=== PATIENT | female | born 1995 | race American Indian/Alaskan Native ===

== ENCOUNTER 2019-03-29 02:35 | Emergency (ER) | payer MEDICAID ==
[2019-03-29 02:40] VITALS: BP 130/82
[2019-03-29] MEDS ORDERED: ONDANSETRON 4 MG/2 ML INJ IV ONE (03:06)
[2019-03-29] MEDS ORDERED: SODIUM CHLORIDE 0.9% 1000 ML 1,000 ML IV ONE (03:06)
--- NOTE | 2019-03-29 03:12 | Emergency Department Report ---
ED Abdominal Pain HPI - General Chief Complaint: Abdominal Pain Stated Complaint: FLANK PAIN,FEVER Time Seen by Provider: 03/29/19 03:04 Source: patient Mode of arrival: Ambulatory Limitations: No Limitations - History of Present Illness Initial Comments: Mrs. WU is a 23-year-old -Wallis[place] female A0 , blood type O postive. who presents with bilateral flank pain radiating the suprapubic 2 days. There is dysuria, and frequency, no hematuria, denies vaginal discharge, no fever or chills, does have history recurrent UTI. However pt states she believes that she is . LMP 02/13/2019. pt advises no concern to UTI. denies vaginal bleeding , no discharge, no abdominal cramping, pt does endorse nausea /vomiting for past 2 days. There is no hx of renal stones. MD Complaint: abdominal pain, flank pain Onset/Timin -: days(s) Location: suprapubic, L flank, R flank Radiation: suprapubic Severity: moderate Severity scale (0 -10): 5 Quality: aching Consistency: constant Improves With: nothing Worsens With: other (voiding) Associated Symptoms: nausea, vomiting, dysuria. denies: diarrhea, fever, chills, melena - Related Data LMP Date: 02/03/19 LMP (females 10-50): 1 month Home Medications Medication Instructions Recorded Confirmed Last Taken Acetaminophen [Non-Aspirin] 325 mg PO PRN 03/31/18 03/31/18 03/27/18 Multivitamin Tablet 1 tab PO QDAY 03/31/18 03/31/18 03/30/18 10:00 metroNIDAZOLE [Flagyl TAB] 1 tab PO QDAY 03/31/18 03/31/18 03/30/18 20:00 Previous Rx's Medication Instructions Recorded Last Taken Type Ferrous Sulfate [Feosol 325 MG tab] 325 mg PO BID #60 tablet 04/03/18 Unknown Rx Ibuprofen [Motrin 600 MG tab] 600 mg PO Q6H #30 tablet 04/03/18 Unknown Rx Labetalol [Labetalol 100mg TAB] 100 mg PO BID #60 tablet 04/03/18 Unknown Rx Vit-Fe Fumar-FA [ 1 each PO QDAY #30 tablet 04/03/18 Unknown Rx Vitamin] Acetaminophen [Acetaminophen TAB] 650 mg PO Q6HR PRN #30 tablet 03/29/19 Unknown Rx cephALEXin [Keflex] 500 mg PO Q12HR 10 Days #20 cap 03/29/19 Unknown Rx metroNIDAZOLE [Flagyl] 500 mg PO Q12HR 10 Days #20 tab 03/29/19 Unknown Rx Allergies Allergy/AdvReac Type Severity Reaction Status Date / Time No Known Allergies Allergy Verified 03/31/18 05:41 ED Review of Systems ROS: Stated complaint: FLANK PAIN,FEVER Other details as noted in HPI Constitutional: denies: chills, fever Eyes: as per HPI ENT: denies: ear pain, throat pain Respiratory: denies: cough, shortness of breath, wheezing Cardiovascular: denies: chest pain, palpitations Endocrine: no symptoms reported Gastrointestinal: denies: abdominal pain, nausea, diarrhea Genitourinary: dysuria, frequency. denies: hematuria, discharge, dyspareunia Musculoskeletal: denies: back pain, joint swelling, arthralgia Skin: denies: rash, lesions Neurological: denies: headache, weakness, paresthesias Psychiatric: denies: anxiety, depression Hematological/Lymphatic: denies: easy bleeding, easy bruising ED Past Medical Hx - Past Medical History Previous Medical History?: No Hx Hypertension: No Hx Congestive Heart Failure: No Hx Diabetes: No Hx Deep Vein Thrombosis: No Hx Renal Disease: No Hx Sickle Cell Disease: No Hx Seizures: No Hx Asthma: No Hx COPD: No Hx HIV: No - Surgical History Past Surgical History?: No - Social History Smoking Status: Current Every Day Smoker Substance Use Type: None - Medications Home Medications: Home Medications Medication Instructions Recorded Confirmed Last Taken Type Acetaminophen [Non-Aspirin] 325 mg PO PRN 03/31/18 03/31/18 03/27/18 History Multivitamin Tablet 1 tab PO QDAY 03/31/18 03/31/18 03/30/18 10:00 History metroNIDAZOLE [Flagyl TAB] 1 tab PO QDAY 03/31/18 03/31/18 03/30/18 20:00 History Ferrous Sulfate [Feosol 325 MG tab] 325 mg PO BID #60 tablet 04/03/18 Unknown Rx Ibuprofen [Motrin 600 MG tab] 600 mg PO Q6H #30 tablet 04/03/18 Unknown Rx Labetalol [Labetalol 100mg TAB] 100 mg PO BID #60 tablet 04/03/18 Unknown Rx Vit-Fe Fumar-FA [ 1 each PO QDAY #30 tablet 04/03/18 Unknown Rx Vitamin] Acetaminophen [Acetaminophen TAB] 650 mg PO Q6HR PRN #30 tablet 03/29/19 Unknown Rx cephALEXin [Keflex] 500 mg PO Q12HR 10 Days #20 cap 03/29/19 Unknown Rx metroNIDAZOLE [Flagyl] 500 mg PO Q12HR 10 Days #20 tab 03/29/19 Unknown Rx ED Physical Exam - General Limitations: No Limitations General appearance: alert, in no apparent distress - Head Head exam: Present: atraumatic, normocephalic - Eye Eye exam: Present: normal appearance, PERRL, EOMI Pupils: Present: normal accommodation - ENT ENT exam: Present: mucous membranes moist - Neck Neck exam: Present: normal inspection, full ROM. Absent: tenderness, lymphadenopathy - Respiratory Respiratory exam: Present: normal lung sounds bilaterally. Absent: respiratory distress - Cardiovascular Cardiovascular Exam: Present: regular rate, normal rhythm. Absent: systolic murmur, diastolic murmur, rubs, gallop - GI/Abdominal GI/Abdominal exam: Present: soft, normal bowel sounds. Absent: distended, tenderness, guarding, rebound, rigid, bruit, hernia - Rectal Rectal exam: Present: deferred - External exam: Present: normal external exam (all). Absent: erythema, swelling, lesions, lacerations, ecchymosis, bleeding Speculum exam: Present: erythema, vaginal discharge (white thick malodorous ). Absent: cervical discharge, vaginal bleeding, foreign body, tissue, laceration Bi-manual exam: Absent: cervical motion tendernes - Extremities Exam Extremities exam: Present: normal inspection, full ROM, normal capillary refill - Back Exam Back exam: Present: full ROM. Absent: tenderness, CVA tenderness (R), CVA tenderness (L), vertebral tenderness - Neurological Exam Neurological exam: Present: alert, oriented X3, CN II-XII intact, normal gait - Psychiatric Psychiatric exam: Present: normal affect, normal mood - Skin Skin exam: Present: warm ED Course Vital Signs 03/29/19 02:38 Temperature 98.7 F Pulse Rate 117 H Respiratory 18 Rate Blood Pressure 130/82 O2 Sat by Pulse 96 Oximetry ED Medical Decision Making - Lab Data Result diagrams: 03/29/19 02:53 03/29/19 02:53 Labs 03/29/19 03/29/19 03/29/19 02:53 02:53 02:53 WBC 8.7 RBC 4.34 Hgb 12.7 Hct 38.5 MCV 89 MCH 29 MCHC 33 RDW 13.8 Plt Count 282 Lymph % (Auto) 13.3 L [place] % (Auto) 13.3 H Eos % (Auto) 0.1 Baso % (Auto) 0.4 Lymph # 1.2 [place] # 1.2 H Eos # 0.0 Baso # 0.0 Seg Neutrophils % 72.9 H Seg Neutrophils # 6.4 Sodium 136 L Potassium 3.7 Chloride 101.2 Carbon Dioxide 22 Anion Gap 17 BUN 7 Creatinine 0.7 Estimated GFR > 60 BUN/Creatinine Ratio 10 Glucose 100 Calcium 9.5 Total Bilirubin 0.40 AST 15 ALT 8 Alkaline Phosphatase 57 Total Protein 8.6 H Albumin 4.5 Albumin/Globulin Ratio 1.1 Lipase 7 L HCG, Qual Positive HCG, Quant Urine Color Urine Turbidity Urine pH Ur Specific [place] Urine Protein Urine Glucose (UA) Urine Ketones Urine Blood Urine Nitrite Urine Bilirubin Urine Urobilinogen Ur Leukocyte Esterase Urine WBC (Auto) Urine RBC (Auto) U Epithel Cells (Auto) Urine Bacteria (Auto) Urine Mucus 03/29/19 03/29/19 04:38 Unknown WBC RBC Hgb Hct MCV MCH MCHC RDW Plt Count Lymph % (Auto) [place] % (Auto) Eos % (Auto) Baso % (Auto) Lymph # [place] # Eos # Baso # Seg Neutrophils % Seg Neutrophils # Sodium Potassium Chloride Carbon Dioxide Anion Gap BUN Creatinine Estimated GFR BUN/Creatinine Ratio Glucose Calcium Total Bilirubin AST ALT Alkaline Phosphatase Total Protein Albumin Albumin/Globulin Ratio Lipase HCG, Qual HCG, Quant 9141 H Urine Color Yellow Urine Turbidity Slightly-cloudy Urine pH 5.0 Ur Specific [place] 1.021 Urine Protein 30 mg/dl Urine Glucose (UA) Neg Urine Ketones 80 Urine Blood Neg Urine Nitrite Pos Urine Bilirubin Neg Urine Urobilinogen < 2.0 Ur Leukocyte Esterase Mod Urine WBC (Auto) 29.0 H Urine RBC (Auto) 4.0 U Epithel Cells (Auto) 6.0 Urine Bacteria (Auto) 2+ Urine Mucus 3+ - Radiology Data Radiology results: report reviewed, image reviewed [facility] [address] [place] [address] Ultrasound Report Signed Patient: SANDRITA WALLACE MR#: [id number] : 1995 Acct:[id number] Age/Sex: 23 / F ADM Date: 03/29/19 Loc: ED Attending Dr: Ordering Physician: PARAS GRIGGS NP Date of Service: 03/29/19 Procedure(s): US OB transvaginal Accession Number(s): [id number] cc: PARAS GRIGGS NP Limited obstetrical ultrasound INDICATION: , pelvic pain TECHNIQUE: Transabdominal and endovaginal COMPARISON: None FINDINGS: Intrauterine gestational sac is seen with a yolk sac noted. No pole is identified. The technologist did not identified cardiac activity. Sac size corresponds to an estimated gestational age of 5 weeks 5 days. Flow is noted in both ovaries. A 15 mm complex area is seen in the left ovary which may be a corpus luteum cyst with hemorrhage. No free fluid is seen. IMPRESSION: 1. Early intrauterine but I cannot confirm viability. Recommend follow-up. 2. Small complex lesion in the left ovary. Recommend follow-up. Signer Name: Adrien Parnell MD Signed: 03/29/2019 5:51 AM Workstation Name: [id number] Transcribed By: GJ Dictated By: Adrien Parnell MD Electronically Authenticated By: Adrien Parnell MD Signed Date/Time: 03/29/19550 DD/ 7 TD/TT: - Medical Decision Making US OB: Sing IUP 5 weeks and 5days, UA: pos leuk , wbc, , pt will follow up with OBGYN in 2-3 days , for hcg check and possible repeat UA. pt verbailzed agreement and understanding of discharge plan, pt dc'd to home in stable condition at this plan. Critical care attestation.: If time is entered above; I have spent that time in minutes in the direct care of this critically ill patient, excluding procedure time. ED Disposition Clinical Impression: Abdominal pain during intrauterine , Nausea and vomiting during Qualifiers: Weeks of gestation: 9 weeks Qualified Code(s): Z3A.09 - 9 weeks gestation of Ovarian cyst Qualifiers: Laterality: left Qualified Code(s): N83.202 - Unspecified ovarian cyst, left side Disposition: DC-01 TO HOME OR SELFCARE Is pt being admited?: No Does the pt Need Aspirin: No Condition: Stable Instructions: Ovarian Cyst (ED), (ED), Abdominal Pain in (ED) Prescriptions: Acetaminophen [Acetaminophen TAB] 650 mg PO Q6HR PRN #30 tablet PRN Reason: Pain metroNIDAZOLE [Flagyl] 500 mg PO Q12HR 10 Days #20 tab cephALEXin [Keflex] 500 mg PO Q12HR 10 Days #20 cap Forms: Work/School Release Form(ED) Time of Disposition: 06:25
[2019-03-29 03:19] LABS: Basophils % (Auto) 0.4 % (0.0-1.8); Eosinophils % (Auto) 0.1 % (0.0-4.3); Hematocrit 38.5 % (30.3-42.9); Hemoglobin 12.7 gm/dl (10.1-14.3); Lymphocytes # (Auto) 1.2 K/mm3 (1.2-5.4); Lymphocytes % (Auto) 13.3 % (13.4-35.0); Mean Corpuscular HGB Conc 33 % (30-34); Mean Corpuscular Volume 89 fl (79-97); Monocytes # (Auto) 1.2 K/mm3 (0.0-0.8); Monocytes % (Auto) 13.3 % (0.0-7.3); Platelet Count 282 K/mm3 (140-440); Red Blood Count 4.34 M/mm3 (3.65-5.03); Red Cell Distribution Width 13.8 % (13.2-15.2)
[2019-03-29 03:34] LABS: Bacteria,Urine 2+ /HPF (Negative); Bilirubin,Urine NEG (Negative); Blood,Urine NEG (Negative); Color,Urine Yellow (Yellow); Mucus,Urine 3+ /HPF; Urobilinogen,Urine < 2.0 mg/dL (<2.0)
[2019-03-29 03:48] LABS: Alanine Aminotransferase 8 units/L (7-56); Albumin 4.5 g/dL (3.9-5); BUN/Creatinine Ratio 10; Blood Urea Nitrogen 7 mg/dL (7-17); Calcium 9.5 mg/dL (8.4-10.2); Hemolysis Index 4
--- NOTE | 2019-03-29 05:55 | Ultrasound Report ---
Limited obstetrical ultrasound INDICATION: , pelvic pain TECHNIQUE: Transabdominal and endovaginal COMPARISON: None FINDINGS: Intrauterine gestational sac is seen with a yolk sac noted. No pole is identified. e technologist did not identified cardiac activity. Sac size corresponds to an estimated gestat ional age of 5 weeks 5 days. Flow is noted in both ovaries. A 15 mm complex area is seen in the left ovary which may be a corpus l uteum cyst with hemorrhage. No free fluid is seen. IMPRESSION: 1. Early intrauterine but I cannot confirm viability. Recommend follow-up. 2. Small complex lesion in the left ovary. Recommend follow-up. Signer Name: Adrien Parnell MD Signed: 03/29/2019 5:51 AM Workstation Name: [id number]
== END 2019-03-29 06:32 | disposition home or self-care (01) ==
LOC: ED 02:35
DX: O34.81 Maternal care for other abnormalities of pelvic organs, first trimester (principal); N83.202 Unspecified ovarian cyst, left side; O21.8 Other vomiting complicating pregnancy; O99.331 Smoking (tobacco) complicating pregnancy, first trimester; Z79.899 Other long term (current) drug therapy; Z3A.09 9 weeks gestation of pregnancy
CPT/HCPCS: 36415; 76801; 76817; 80053; 81001; 83690; 84702; 84703; 85025; 87086; 87210; 87591; 96361; 96374; 99284; J2405; J7030; 87076; 87186

== ENCOUNTER 2020-09-17 22:46 | Observation (INO) | payer MEDICAID ==
[2020-09-18] MEDS ORDERED: AMPICILLIN/NS 2 GM/100 ML 2 GM/100 ML BAG IV ONE (00:35)
[2020-09-18] MEDS ORDERED: METHYLERGONOVINE MALEATE 0.2 MG/ML VIAL IM PRN (00:35)
[2020-09-18] MEDS ORDERED: BUTORPHANOL 2 MG/1 ML INJ IV PRN (00:35)
[2020-09-18] MEDS ORDERED: OXYTOCIN 10 UNIT/1 ML INJ IM PRN (00:35)
[2020-09-18] MEDS ORDERED: MINERAL OIL 30 ML ORAL LIQD PO PRN (00:35)
[2020-09-18] MEDS ORDERED: LIDOCAINE (2%) 20 MG/1 ML VIAL 20 ML MDV INFILTRATI ONE (00:35)
[2020-09-18] MEDS ORDERED: NalbUPHINE 10 MG/1 ML INJ IV PRN (00:35)
[2020-09-18] MEDS ORDERED: TERBUTALINE 1 MG/1 ML INJ SUB-Q PRN (00:35)
[2020-09-18] MEDS ORDERED: ePHEDrine SULFATE 50 MG/1 ML INJ IV PRN (00:35)
--- NOTE | 2020-09-18 00:48 | History and Physical Report ---
History of Present Illness Date of examination: 09/18/20 Date of admission: 25 yo WITH NO CARE. DENIES MEDICAL PROBLEMS. ADMITTED IN EARLY LABOR. Chief complaint: C/O LABOR. History of present illness: 25 YO MULTIP WITH NO CARE. SUSPECT TERM . NO MEDICAL PROBLEMS. EXPENTANT VAGINAL DELIVERY. Past History Past Surgical History: no surgical history Family/Genetic History: hypertension Social history: single - Obstetrical History : 3 Para: 1 Hx # Term Pregnancies: 1 Number of Pregnancies: 0 Spontaneous Abortions: 0 Induced : 0 Number of Living Children: 1 Medications and Allergies Allergies Allergy/AdvReac Type Severity Reaction Status Date / Time No Known Allergies Allergy Verified 03/31/18 05:41 Home Medications Medication Instructions Recorded Confirmed Last Taken Type Acetaminophen [Non-Aspirin] 325 mg PO PRN 03/31/18 03/31/18 03/27/18 History Multivitamin Tablet 1 tab PO QDAY 03/31/18 03/31/18 03/30/18 10:00 History metroNIDAZOLE [Flagyl TAB] 1 tab PO QDAY 03/31/18 03/31/18 03/30/18 20:00 History Ferrous Sulfate [Feosol 325 MG tab] 325 mg PO BID #60 tablet 04/03/18 Unknown Rx Ibuprofen [Motrin 600 MG tab] 600 mg PO Q6H #30 tablet 04/03/18 Unknown Rx Vit-Fe Fumar-FA [ 1 each PO QDAY #30 tablet 04/03/18 Unknown Rx Vitamin] labetaloL [Labetalol 100mg TAB] 100 mg PO BID #60 tablet 04/03/18 Unknown Rx Acetaminophen [Acetaminophen TAB] 650 mg PO Q6HR PRN #30 tablet 03/29/19 Unknown Rx cephALEXin [Keflex] 500 mg PO Q12HR 10 Days #20 cap 03/29/19 Unknown Rx metroNIDAZOLE [Flagyl] 500 mg PO Q12HR 10 Days #20 tab 03/29/19 Unknown Rx Active Meds: Active Medications Butorphanol Tartrate (Butorphanol 2 Mg/1 Ml Inj) 1 mg IV Q2H PRN PRN Reason: Pain, Moderate(4-6) LABOR PAIN Ephedrine Sulfate (Ephedrine Sulfate 50 Mg/1 Ml Inj) 10 mg IV Q2M PRN PRN Reason: Hypotension Oxytocin/Sodium Chloride (Pitocin/Ns 30 Unit/500ml) 30 units in 500 mls @ 2 mls/hr IV TITR JOSIE; Protocol Lactated Ringer's (Lactated Ringers) 1,000 mls @ 125 mls/hr IV DIRECT JOSIE Oxytocin/Sodium Chloride (Pitocin/Ns 30 Unit/500ml) 30 units in 500 mls @ 40 mls/hr IV TITR JOSIE; Protocol Ampicillin Sodium (Ampicillin/Ns 2 Gm/100 Ml) 2 gm in 100 mls @ 100 mls/hr IV ONCE ONE; Protocol Stop: 09/18/20 01:34 Lidocaine (Lidocaine (2%) 20 Mg/1 Ml Vial 20 Ml Mdv) 20 ml INFILTRATI ONCE ONE Stop: 09/18/20 00:36 Methylergonovine Maleate (Methylergonovine Maleate 0.2 Mg/Ml Vial) 0.2 mg IM ONCE PRN PRN Reason: Uterine Bleeding Mineral Oil (Mineral Oil 30 Ml Oral Liqd) 30 ml PO QHS PRN PRN Reason: Constipation Nalbuphine HCl (Nalbuphine 10 Mg/1 Ml Inj) 10 mg IV Q2H PRN PRN Reason: Pain, Moderate (4-6) Ondansetron HCl (Ondansetron 4 Mg/2 Ml Inj) 4 mg IV Q8H PRN PRN Reason: Nausea And Vomiting Oxytocin (Oxytocin 10 Unit/1 Ml Inj) 10 unit IM ONCE PRN PRN Reason: Uterine Bleeding Terbutaline Sulfate (Terbutaline 1 Mg/1 Ml Inj) 0.25 mg SUB-Q ONCE PRN PRN Reason: Hyperstimulation/Hypertonicity Review of Systems All systems: negative - Vital Signs Vital signs: Vital Signs Temp Pulse Resp 98.3 F 78 18 09/17/20 23:56 09/17/20 23:56 09/17/20 23:56 Temp Pulse Resp BP Pulse Ox 98.3 F 79 18 125/87 09/17/20 23:56 09/18/20 00:26 09/17/20 23:56 09/18/20 00:26 - Physical Exam Breasts: Positive: normal Cardiovascular: Regular rate, Normal S1, Normal S2 Abdomen: Positive: normal appearance, soft, normal bowel sounds. Negative: distention, tenderness Genitourinary (Female): Positive: normal external genitalia Vulva: both: normal Vagina: Positive: normal moisture. Negative: discharge Cervix: Negative: lesion, discharge Uterus: Positive: normal size, normal contour Adnexa: both: normal Anus/Rectum: Positive: normal perianal skin, heme negative. Negative: rectal mass, hemorrhoids Extremities: Deep Tendon Reflex Grade: Normal +2 - Obstetrical FHR: category 1 Uterine Contraction Monitor Mode: External Cervical Dilatation: 2 Results All other labs normal. Assessment and Plan WILL GET U/S FOR GEST AGE. EXPECTANT VAG DELIVERY.ORDER ROUTINE LABS.
[2020-09-18 00:49] LABS: Hematocrit 34.4 % (30.3-42.9); Hemoglobin 11.3 gm/dl (10.1-14.3); Mean Corpuscular HGB Conc 33 % (30-34); Mean Corpuscular Volume 88 fl (79-97); Platelet Count 204 K/mm3 (140-440); Red Blood Count 3.93 M/mm3 (3.65-5.03)
[2020-09-18] MEDS ORDERED: OXYTOCIN DRIP 30 UNITS/500 ML BAG IV SCH ×2 (01:00)
[2020-09-18 01:15] LABS: Basophils % (Auto) 0.2 % (0.0-1.8); Eosinophils % (Auto) 0.3 % (0.0-4.3); Lymphocytes # (Auto) 1.6 K/mm3 (1.2-5.4); Lymphocytes % (Auto) 15.3 % (13.4-35.0); Monocytes % (Auto) 10.1 % (0.0-7.3)
--- NOTE | 2020-09-18 01:17 | Ultrasound Report ---
Limited OB Ultrasound HISTORY: EGA, PRESENTATION. TECHNIQUE: Grayscale and color imaging performed. COMPARISON: No recent comparison exam FINDINGS: There is a single viable intrauterine gestation with cephalic presentation. Heart rate is 1 31 bpm. Overall EGA by ultrasound is 36 weeks 6 days with estimated weight of 2905 g. Estimated delivery date is 10/10/2020. IMPRESSION: Single viable intrauterine gestation as above. Signer Name: Spencer Lind MD Signed: 09/18/2020 1:13 AM Workstation Name: [id number]
[2020-09-18 01:32] LABS: Hematocrit 34.4 % (30.3-42.9); Hemoglobin 11.3 gm/dl (10.1-14.3); Red Blood Count 3.93 M/mm3 (3.65-5.03)
[2020-09-18 01:33] LABS: Mean Corpuscular HGB Conc 33 % (30-34); Mean Corpuscular Volume 88 fl (79-97); Mean Platelet Volume 9.7 fl (6-12); Platelet Count 204 K/mm3 (140-440)
[2020-09-18 01:35] LABS: Hepatitis C Virus Antibody Non-Reactive (NonReactive)
[2020-09-18] MEDS ORDERED: BUTORPHANOL 2 MG/1 ML INJ IV ONE (03:15)
[2020-09-18] MEDS: ONDANSETRON 4 MG/2 ML INJ IV PRN ×2 (03:39→10:40)
--- NOTE | 2020-09-18 09:47 | Progress Note ---
Assessment and Plan A: IUP@ 37 wks No PNC GBS unknown P: Obtain ua c&s Expectant mtg Subjective - Subjective Date of service: 09/18/20 Principal diagnosis: IUP@37 WKS Patient reports: movement normal Objective - Vital Signs Vital Signs: Vital Signs - 12hr 09/17/20 09/18/20 09/18/20 23:56 00:07 00:12 Temperature 98.3 F Pulse Rate 78 81 75 Respiratory 18 Rate Blood Pressure 138/99 130/88 Blood Pressure [Right] O2 Sat by Pulse Oximetry 09/18/20 09/18/20 09/18/20 00:16 00:22 00:26 Temperature Pulse Rate 75 80 79 Respiratory Rate Blood Pressure 127/88 124/88 125/87 Blood Pressure [Right] O2 Sat by Pulse Oximetry 09/18/20 09/18/20 09/18/20 00:46 01:03 01:17 Temperature Pulse Rate 71 80 69 Respiratory Rate Blood Pressure 128/78 144/94 128/85 Blood Pressure [Right] O2 Sat by Pulse Oximetry 09/18/20 09/18/20 09/18/20 01:57 01:58 02:03 Temperature 97.6 F Pulse Rate 77 75 71 Respiratory 18 Rate Blood Pressure 136/92 Blood Pressure 136/92 [Right] O2 Sat by Pulse 98 97 100 Oximetry 09/18/20 09/18/20 09/18/20 02:08 02:13 02:18 Temperature Pulse Rate 92 H 74 84 Respiratory Rate Blood Pressure Blood Pressure [Right] O2 Sat by Pulse 99 98 99 Oximetry 09/18/20 09/18/20 09/18/20 02:23 02:28 02:33 Temperature Pulse Rate 84 71 101 H Respiratory Rate Blood Pressure Blood Pressure [Right] O2 Sat by Pulse 100 99 100 Oximetry 09/18/20 09/18/20 09/18/20 03:37 03:42 03:47 Temperature Pulse Rate 77 73 85 Respiratory Rate Blood Pressure Blood Pressure [Right] O2 Sat by Pulse 96 96 98 Oximetry 09/18/20 09/18/20 09/18/20 03:52 03:57 04:02 Temperature Pulse Rate 69 70 68 Respiratory Rate Blood Pressure Blood Pressure [Right] O2 Sat by Pulse 96 100 98 Oximetry 09/18/20 09/18/20 09/18/20 04:04 04:07 04:09 Temperature Pulse Rate 66 68 83 Respiratory Rate Blood Pressure Blood Pressure [Right] O2 Sat by Pulse 94 96 92 Oximetry 09/18/20 09/18/20 09/18/20 04:12 04:15 04:17 Temperature Pulse Rate 73 68 80 Respiratory Rate Blood Pressure Blood Pressure [Right] O2 Sat by Pulse 95 94 95 Oximetry 09/18/20 09/18/20 09/18/20 04:22 04:23 04:25 Temperature 97.4 F L Pulse Rate 74 67 Respiratory 16 Rate Blood Pressure 117/61 Blood Pressure [Right] O2 Sat by Pulse 96 93 Oximetry 09/18/20 09/18/20 09/18/20 04:27 04:32 04:34 Temperature Pulse Rate 69 69 79 Respiratory Rate Blood Pressure Blood Pressure [Right] O2 Sat by Pulse 97 98 89 Oximetry 09/18/20 09/18/20 09/18/20 04:37 04:42 04:47 Temperature Pulse Rate 70 71 76 Respiratory Rate Blood Pressure Blood Pressure [Right] O2 Sat by Pulse 98 98 98 Oximetry 09/18/20 09/18/20 09/18/20 04:52 04:57 05:02 Temperature Pulse Rate 79 77 72 Respiratory Rate Blood Pressure Blood Pressure [Right] O2 Sat by Pulse 99 99 99 Oximetry 09/18/20 09/18/20 09/18/20 05:07 05:12 05:17 Temperature Pulse Rate 76 77 81 Respiratory Rate Blood Pressure Blood Pressure [Right] O2 Sat by Pulse 99 99 98 Oximetry 09/18/20 09/18/20 09/18/20 05:22 05:27 05:32 Temperature Pulse Rate 76 76 74 Respiratory Rate Blood Pressure Blood Pressure [Right] O2 Sat by Pulse 97 98 97 Oximetry 09/18/20 09/18/20 09/18/20 05:37 05:42 05:47 Temperature Pulse Rate 81 73 77 Respiratory Rate Blood Pressure Blood Pressure [Right] O2 Sat by Pulse 97 97 97 Oximetry 09/18/20 09/18/20 09/18/20 05:52 05:57 06:02 Temperature Pulse Rate 68 83 76 Respiratory Rate Blood Pressure Blood Pressure [Right] O2 Sat by Pulse 97 97 97 Oximetry 09/18/20 09/18/20 09/18/20 06:07 06:12 06:17 Temperature Pulse Rate 77 73 77 Respiratory Rate Blood Pressure Blood Pressure [Right] O2 Sat by Pulse 96 96 96 Oximetry 09/18/20 09/18/20 09/18/20 06:22 06:27 06:32 Temperature Pulse Rate 73 73 77 Respiratory Rate Blood Pressure Blood Pressure [Right] O2 Sat by Pulse 96 97 96 Oximetry 09/18/20 09/18/20 09/18/20 06:37 06:42 06:45 Temperature Pulse Rate 75 82 83 Respiratory Rate Blood Pressure Blood Pressure [Right] O2 Sat by Pulse 96 97 93 Oximetry 09/18/20 09/18/20 09/18/20 06:47 06:51 06:52 Temperature Pulse Rate 74 79 83 Respiratory Rate Blood Pressure Blood Pressure [Right] O2 Sat by Pulse 95 91 95 Oximetry 09/18/20 09/18/20 09/18/20 06:56 06:57 07:02 Temperature Pulse Rate 75 89 75 Respiratory Rate Blood Pressure Blood Pressure [Right] O2 Sat by Pulse 94 96 96 Oximetry 09/18/20 09/18/20 07:14 07:19 Temperature Pulse Rate 80 94 H Respiratory Rate Blood Pressure Blood Pressure [Right] O2 Sat by Pulse 96 100 Oximetry - Exam Breasts: normal Abdomen: Present: normal appearance, soft, normal bowel sounds Vulva: both: normal Uterus: Present: normal FHR: auscultation normal, category 1 Uterine Contraction Monitor Mode: External Cervical Dilatation: 3 Cervical Effacement Percentage: 50 station: -3 Uterine Contraction Pattern: Irregular Uterine Tone Measurement Phase: Resting Uterine Contraction Intensity: Mild Extremities: normal - Labs Labs: Abnormal Labs 09/18/20 09/18/20 00:21 00:21 RDW 16.0 H 16.0 H [place] % (Auto) 10.1 H [place] # (Auto) 1.0 H Seg Neutrophils % 74.1 H Laboratory Results - last 24 hr 09/18/20 09/18/20 09/18/20 00:21 00:21 00:21 WBC 10.3 RBC 3.93 Hgb 11.3 Hct 34.4 MCV 88 MCH 29 MCHC 33 RDW 16.0 H Plt Count 204 Lymph % (Auto) 15.3 [place] % (Auto) 10.1 H Eos % (Auto) 0.3 Baso % (Auto) 0.2 Lymph # (Auto) 1.6 [place] # (Auto) 1.0 H Eos # (Auto) 0.0 Baso # (Auto) 0.0 Seg Neutrophils % 74.1 H Seg Neutrophils # 7.7 Syphilis IgG Antibody Hep Bs Antigen Non-reactive Hepatitis C Antibody Non-reactive HIV 1&2 Antibody Rapid HIV P24 Antigen Rubella IgG Antibody Immune Blood Type Antibody Screen 09/18/20 09/18/20 09/18/20 00:21 00:21 00:21 WBC 10.3 RBC 3.93 Hgb 11.3 Hct 34.4 MCV 88 MCH 29 MCHC 33 RDW 16.0 H Plt Count 204 Lymph % (Auto) [place] % (Auto) Eos % (Auto) Baso % (Auto) Lymph # (Auto) [place] # (Auto) Eos # (Auto) Baso # (Auto) Seg Neutrophils % Seg Neutrophils # Syphilis IgG Antibody Nonreactive Hep Bs Antigen Hepatitis C Antibody HIV 1&2 Antibody Rapid Non react HIV P24 Antigen Non react Rubella IgG Antibody Blood Type O POSITIVE Antibody Screen Negative
[2020-09-18] MEDS: LACTATED RINGERS 1,000 ML IV SCH ×2 (10:29→12:37)
[2020-09-18 10:44] LABS: Bacteria,Urine 1+ /HPF (Negative); Bilirubin,Urine NEG (Negative); Blood,Urine NEG (Negative); Color,Urine Yellow (Yellow); Protein,Urine <15 mg/dL mg/dL (Negative); Urobilinogen,Urine < 2.0 mg/dL (<2.0)
[2020-09-18 12:03] LABS: Amphetamine Screen,Urine PRESUMPTIVE NEGATIVE; Benzodiazepines Screen,Urine PRESUMPTIVE NEGATIVE; Methadone Screen,Urine PRESUMPTIVE NEGATIVE
[2020-09-18 12:04] LABS: Cannabinoid Screen,Urine PRESUMPTIVE POSITIVE; Cocaine Screen,Urine PRESUMPTIVE NEGATIVE; Opiate Screen,Urine PRESUMPTIVE NEGATIVE
[2020-09-18] MEDS ORDERED: LIDOCAINE-MPF (1%) 10 MG/1 ML VIAL 5 ML INFILTRATI ONE (12:30)
[2020-09-18 15:50] VITALS: BP 140/79
[2020-09-18] MEDS ORDERED: ACETAMINOPHEN 325 MG TAB PO NR (15:53)
[2020-09-18] MEDS ORDERED: NITROFURANTOIN MONOHYD/M-CRYST 100 MG CAP PO SCH (18:00)
== END 2020-09-18 17:15 | disposition home or self-care (01) ==
LOC: TRG 22:46 → APU 22:46 → LD 09-18 00:35 → TRG 09-18 00:35 → INTOOBSV 09-18 00:35
DX: O62.9 Abnormality of forces of labor, unspecified (principal); Z20.822 Contact with and (suspected) exposure to COVID-19; Z3A.37 37 weeks gestation of pregnancy; Z79.899 Other long term (current) drug therapy
CPT/HCPCS: 36415; 59025; 76816; 80307; 81001; 85014; 85018; 85025; 85027; 86592; 86706; 86762; 86803; 86850; 86900; 86901; 87086; 87806; 96365; 96372; 96375; 96376; G0378; J0290; J0595; J0696; J2405; J7120; Q0177; U0003

== ENCOUNTER 2020-09-28 18:57 | Inpatient (IN) | payer MEDICAID ==
[2020-09-28] MEDS ORDERED: LACTATED RINGERS 1,000 ML IV ONE (19:54)
--- NOTE | 2020-09-28 21:55 | Vascular Lab Report ---
Right lower extremity Doppler venous ultrasound INDICATION: Swelling FINDINGS: The right common femoral vein, superficial femoral vein and popliteal vein have normal comp ressibility and phasic flow. IMPRESSION: No evidence for DVT. Signer Name: Terrance Capellan MD Signed: 09/28/2020 9:51 PM Workstation Name: [id number]
--- NOTE | 2020-09-28 21:57 | Ultrasound Report ---
OB ultrasound INDICATION: well-being FINDINGS: There is a single live intrauterine . JOSÉ MIGUEL measures 12.1 cm. Placenta is grade 2 an d posterior. heart rate is 116. BPD measures 9.49 cm, head circumference 32.9 cm. Abdominal cir cumference 34.43 cm. Femoral length 7.5 cm. Ultrasound age 38 weeks 2 days. Cephalic position. IMPRESSION: Single live intrauterine . Biophysical profile INDICATION: Evaluate well-being FINDINGS: breathing movements, 2. movements 2. posturing time 2. Amniotic fluid volume 12.1 cm score of 2. IMPRESSION: Biophysical profile 8 out of 8. Signer Name: Terrance Capellan MD Signed: 09/28/2020 9:52 PM Workstation Name: [id number]
[2020-09-28] MEDS ORDERED: DOCUSATE SODIUM 100 MG CAP PO PRN (22:05)
[2020-09-28] MEDS ORDERED: ACETAMINOPHEN 325 MG TAB PO PRN (22:05)
[2020-09-28 23:30] LABS: Hematocrit 33.6 % (30.3-42.9); Mean Corpuscular HGB Conc 33 % (30-34); Mean Corpuscular Volume 88 fl (79-97); Platelet Count 243 K/mm3 (140-440); Red Blood Count 3.84 M/mm3 (3.65-5.03); Red Cell Distribution Width 16.9 % (13.2-15.2)
[2020-09-29 00:04] LABS: Alanine Aminotransferase 117 units/L (7-56)
[2020-09-29 00:21] LABS: Amphetamine Screen,Urine PRESUMPTIVE NEGATIVE; Benzodiazepines Screen,Urine PRESUMPTIVE NEGATIVE; Cannabinoid Screen,Urine PRESUMPTIVE POSITIVE; Cocaine Screen,Urine PRESUMPTIVE NEGATIVE; Methadone Screen,Urine PRESUMPTIVE NEGATIVE; Opiate Screen,Urine PRESUMPTIVE NEGATIVE
[2020-09-29 00:24] LABS: Bacteria,Urine 1+ /HPF (Negative); Bilirubin,Urine NEG (Negative); Blood,Urine NEG (Negative); Color,Urine Yellow (Yellow); Protein,Urine <15 mg/dL mg/dL (Negative); Urobilinogen,Urine < 2.0 mg/dL (<2.0)
[2020-09-29 02:49] LABS: Hepatitis C Virus Antibody Non-Reactive (NonReactive)
[2020-09-29 05:23] LABS: Uric Acid 6.9 mg/dL (3.5-7.6)
[2020-09-29] MEDS: PRENATAL VIT27-FE FUMARATE-FOLIC ACID VIT TAB PO SCH (09:16)
[2020-09-29] MEDS ORDERED: ALUM-MAG HYDROXIDE-SIMETHICONE 200-200-20MG/5ML ORAL LIQD 30 ML PO PRN (10:00)
[2020-09-29] MEDS: ONDANSETRON 4 MG/2 ML INJ IV PRN ×3 (12:44→21:49)
[2020-09-29] MEDS ORDERED: MINERAL OIL 30 ML ORAL LIQD PO PRN (18:22)
[2020-09-29] MEDS ORDERED: ACETAMINOPHEN 325 MG TAB PO PRN (18:22)
[2020-09-29] MEDS ORDERED: TERBUTALINE 1 MG/1 ML INJ SUB-Q PRN (18:22)
[2020-09-29] MEDS ORDERED: NalbUPHINE 10 MG/1 ML INJ IV PRN (18:22)
[2020-09-29] MEDS ORDERED: ePHEDrine SULFATE 50 MG/1 ML INJ IV PRN ×2 (18:22→22:26)
--- NOTE | 2020-09-29 18:35 | History and Physical Report ---
History of Present Illness Date of examination: 09/29/20 Date of admission: 09/29/20 Chief complaint: labor History of present illness: Patient is a [id number]-year-old female 3 para 1-0-0-1 who was admitted with in early labor. No care she is 33 Ultrasound she has a 24-hour urine pending she got 3 to 4 cm dilated so we decided to admit her. Family history is noncontributory. Swollen leg. Past History Past Surgical History: no surgical history Family/Genetic History: none Social history: no significant social history - Obstetrical History Expected Date of Delivery: 10/13/20 Actual Gestation: 38 Week(s) 0 Day(s) : 4 Para: 3 Hx # Term Pregnancies: 3 Number of Pregnancies: 0 Spontaneous Abortions: 0 Induced : 0 Number of Living Children: 3 Medications and Allergies Allergies Allergy/AdvReac Type Severity Reaction Status Date / Time No Known Allergies Allergy Verified 03/31/18 05:41 Home Medications Medication Instructions Recorded Confirmed Last Taken Type Acetaminophen [Non-Aspirin] 325 mg PO PRN 03/31/18 09/18/20 03/27/18 History Multivitamin Tablet 1 tab PO QDAY 03/31/18 09/18/20 03/30/18 10:00 History metroNIDAZOLE [Flagyl TAB] 1 tab PO QDAY 03/31/18 09/18/20 03/30/18 20:00 History Ferrous Sulfate [Feosol 325 MG tab] 325 mg PO BID #60 tablet 04/03/18 09/18/20 Unknown Rx Ibuprofen [Motrin 600 MG tab] 600 mg PO Q6H #30 tablet 04/03/18 09/18/20 Unknown Rx Vit-Fe Fumar-FA [ 1 each PO QDAY #30 tablet 04/03/18 09/18/20 Unknown Rx Vitamin] labetaloL [Labetalol 100mg TAB] 100 mg PO BID #60 tablet 04/03/18 09/18/20 Unknown Rx Acetaminophen [Acetaminophen TAB] 650 mg PO Q6HR PRN #30 tablet 03/29/19 09/18/20 Unknown Rx cephALEXin [Keflex] 500 mg PO Q12HR 10 Days #20 cap 03/29/19 09/18/20 Unknown Rx metroNIDAZOLE [Flagyl] 500 mg PO Q12HR 10 Days #20 tab 03/29/19 09/18/20 Unknown Rx Nitrofurantoin [place]/M-Cryst 100 mg PO Q12HR 7 Days #14 capsule 09/18/20 Unknown Rx [Macrobid CAP] Active Meds: Active Medications Acetaminophen (Acetaminophen 325 Mg Tab) 650 mg PO Q4H PRN PRN Reason: Pain MILD(1-3)/Fever >100.5/MARTINEZ Last Admin: 09/29/20 08:17 Dose: 650 mg Documented by: Docusate Sodium (Docusate Sodium 100 Mg Cap) 100 mg PO Q12H PRN PRN Reason: Constipation Labetalol HCl (Labetalol 100 Mg Tab) 100 mg PO BID [facility] Last Admin: 09/29/20 09:15 Dose: 100 mg Documented by: Multivitamins/Iron/Calcium ( [id number] Fumarate-Folic Acid Vit Tab) 1 each PO QDAY [facility] Last Admin: 09/29/20 09:16 Dose: 1 each Documented by: Ondansetron HCl (Ondansetron 4 Mg/2 Ml Inj) 4 mg IV Q4H PRN PRN Reason: Nausea And Vomiting Last Admin: 09/29/20 17:24 Dose: 4 mg Documented by: Review of Systems All systems: negative Musculoskeletal: other (swollen right leg) - Vital Signs Vital signs: Vital Signs Pulse BP 75 135/86 09/28/20 19:33 09/28/20 19:33 Temp Pulse Resp BP Pulse Ox 98.0 F 77 18 146/93 100 09/29/20 18:05 09/29/20 18:25 09/29/20 18:05 09/29/20 18:24 09/29/20 18:25 - Physical Exam Breasts: Lungs: Positive: Clear to auscultation Abdomen: Positive: normal appearance, soft, normal bowel sounds. Negative: distention, tenderness Genitourinary (Female): Positive: normal external genitalia Vulva: both: normal Vagina: Positive: normal moisture. Negative: discharge Cervix: Negative: lesion, discharge Uterus: Positive: normal size, enlarged, normal contour Adnexa: both: normal Anus/Rectum: Positive: normal perianal skin, heme negative. Negative: rectal mass, hemorrhoids Extremities: Deep Tendon Reflex Grade: Normal +2 - Obstetrical FHR: category 1 Uterine Contraction Monitor Mode: External Cervical Dilatation: 4 Cervical Effacement Percentage: 75 Results Result Diagrams: 09/28/20 23:09 09/28/20 23:09 Abnormal lab results 09/28/20 09/28/20 09/28/20 Range/Units 23:09 23:09 23:55 RDW 16.9 H (13.2-15.2) % AST 57 H (5-40) units/L ALT 117 H (7-56) units/L Lactate Dehydrogenase 195 H (91-180) units/L Urine WBC (Auto) 8.0 H (0.0-6.0) /HPF All other labs normal. Assessment and Plan 38 wk iup early labor, swollen right leg.
[2020-09-29] MEDS: LACTATED RINGERS 1,000 ML IV SCH ×2 (18:57→22:34)
[2020-09-29] MEDS ORDERED: OXYTOCIN DRIP 30 UNITS/500 ML BAG IV SCH ×2 (19:00)
[2020-09-29] MEDS ORDERED: LIDOCAINE (2%) 20 MG/1 ML VIAL 20 ML MDV INFILTRATI ONE (19:22)
[2020-09-29] MEDS ORDERED: AMPICILLIN/NS 2 GM/100 ML 2 GM/100 ML BAG IV ONE (20:15)
[2020-09-29] MEDS ORDERED: NALOXONE 2 MG/2 ML INJ IV PRN (22:26)
--- NOTE | 2020-09-29 22:29 | Anesthesia Consultation ---
Anesthesia Consult and Med Hx Date of service: 09/29/20 - Airway Mallampati Class: Class II Intubation Access Assessment: Good - Pulmonary Exam CTA: Yes - Cardiac Exam Cardiac Exam: RRR - Pre-Operative Health Status ASA Pre-Surgery Classification: ASA2 Proposed Anesthetic Plan: Epidural - Pulmonary Hx Smoking: No Hx Asthma: No Hx Respiratory Symptoms: No SOB: No COPD: No Home Oxygen Therapy: No Hx Pneumonia: No Hx Sleep Apnea: No - Cardiovascular System Hx Hypertension: Yes (2017) Hx Coronary Artery Disease: No Hx Heart Attack/AMI: No Hx Angina: No Hx Percutaneous Transluminal Coronary Angioplasty (PTCA): No Hx Cardia Arrhythmia: No Hx Pacemaker: No Hx Internal Defibrillator: No Hx Valvular Heart Disease: No Hx Heart Murmur: No Hx Peripheral Vascular Disease: No - Central Nervous System Hx Neuromuscular Disorder: No Hx Seizures: No Hx Psychiatric Problems: No - Gastrointestinal Hx Ulcer: No Hx Gastroesophageal Reflux Disease: No - Endocrine Hx Renal Disease: Yes (UTIs) Hx End Stage Renal Disease: No Hx Cirrhosis: No Hx Liver Disease: No Hx Insulin Dependent Diabetes: No Hx Non-Insulin Dependent Diabetes: No Hx Thyroid Disease: No Hx Hypothyroidism: No Hx Hyperthyroidism: No - Hematic Hx Anemia: No Hx Sickle Cell Disease: No - Other Systems Hx Alcohol Use: No Hx Substance Use: No Hx Cancer: No Hx Obesity: No
[2020-09-29] MEDS ORDERED: fentaNYL-BUPIV 2 MCG/ML-0.125% 200 MCG/100 ML BAG EPIDURAL SCH (23:00)
[2020-09-29] MEDS ORDERED: AMPICILLIN/NS 1 GM/50 ML 1 GM/50 ML BAG IV SCH (23:00)
--- NOTE | 2020-09-29 23:24 | Progress Note ---
Labor Epidural - Labor Epidural Start Time: 10:49 Stop Time: 11:04 Performed by:: TARIQ GALVAN Procedure: Patient is requesting a laboring epidural for laboring pain. Patient IDed, H&P reviewed, all questions and concerns were answered, and consent was signed. Timeout was performed at bedside. Patient in sitting position. Sterile prep and drape was performed. [3] ml of 1% lidocaine skin wheal at L[3]- L [4]. 18- gauge Tuohy epidural needle was advanced to loss of resistance with saline technique 7cm x2 attempt. Negative CSF negative blood. Epidural catheter advanced to [12] centimeters. [NEGATIVE] Aspiration [NEGATIVE] test dose. Sterile dressing applied. Patient tolerated procedure. Pain score decreased from 7 to 1 after placement.
[2020-09-29] MEDS ORDERED: PROMETHAZINE 12.5 MG/10 ML ORAL LIQD PO PRN (23:47)
[2020-09-29] MEDS ORDERED: PROMETHAZINE 12.5 MG/10 ML ORAL LIQD PO ONE (23:53)
[2020-09-30 01:14] LABS: Creatinine,Urine 45.9 mg/dL (0.1-20.0)
[2020-09-30 01:16] LABS: Creatinine 24 Hour,Urine 0.7 (0.8-2.8)
[2020-09-30] MEDS ORDERED: OXYTOCIN 10 UNIT/1 ML INJ IM ONE (02:55)
[2020-09-30] MEDS ORDERED: ACETAMINOPHEN 325 MG TAB PO PRN (03:31)
[2020-09-30] MEDS ORDERED: ONDANSETRON 4 MG/2 ML INJ IV PRN (03:31)
[2020-09-30] MEDS ORDERED: LANOLIN/ZINC/DIMETHICONE (LANSINOH) 7 GM TP PRN (03:31)
[2020-09-30] MEDS ORDERED: PROMETHAZINE 25 MG RECT SUPP PR PRN (03:31)
[2020-09-30] MEDS ORDERED: diphenhydrAMINE 25 MG CAP PO PRN (03:31)
[2020-09-30] MEDS ORDERED: WITCH HAZEL/ GLYCERIN PAD TP PRN (03:31)
[2020-09-30] MEDS ORDERED: PROMETHAZINE 25 MG TAB PO PRN (03:31)
[2020-09-30] MEDS ORDERED: MAGNESIUM HYDROXIDE (MOM) ORAL LIQD UDC PO PRN (03:31)
--- NOTE | 2020-09-30 03:43 | Procedure Note ---
Date of procedure: 09/30/20 Pre-op diagnosis: 38 week , no care, swollen right leg Post-op diagnosis: same Procedure: Anesthesia: none Surgeon: MURRAY SOSA Estimated blood loss: other (250CCS) Pathology: none Specimen disposition: discarded Condition: stable Disposition: observation (MALE , 6POUNDS 1 OZ, 8,9)
[2020-09-30] MEDS: IBUPROFEN 600 MG TAB PO SCH ×3 (05:19→22:12)
[2020-09-30] MEDS: HYDROcodone/ACETAMINOPHEN 5-325 MG TAB PO PRN (09:39)
[2020-09-30] MEDS: PRENATAL VIT27-FE FUMARATE-FOLIC ACID VIT TAB PO SCH (10:57)
--- NOTE | 2020-09-30 11:16 | Progress Note ---
Assessment and Plan A: day of delivery. Drug screen positive for marijuana. Hypertension: taking Labetalol 100 mg po BID. Mild elevation of AST, ALT. P: CBC, CMP, LDH, uric acid repeated today (orders in). Continue Labetalol. Case management consult. Patient to stop using marijuana. Subjective - Subjective Date of service: 09/30/20 Principal diagnosis: day of delivery Interval history: Patient states right leg swelling has decreased. Patient denies leg pain. Venous doppler US of right leg negative. Patient denies headache, visual disturbance, chest pain, shortness of breath, cough, or abdominal pain. She reports moderate amount of lochia. AST 57; ALT 117. Will repeat CBC and CMP today. Hepatitis serology is negative. Taking Labetalol 100 mg po BID. Patient reports: appetite normal, voiding normally, pain well controlled, ambulating normally, no dizzy ambulation, no nauseated : doing well Objective - Vital Signs Latest vital signs: Vital Signs Temp Pulse Resp BP BP Pulse Ox 09/30/20 10:57 72 141/95 09/30/20 08:17 98.5 F 91 H 18 123/83 99 09/30/20 06:12 78 146/89 100 09/30/20 05:46 98.2 F 09/30/20 05:43 76 98 09/30/20 05:38 71 99 09/30/20 05:33 72 99 09/30/20 05:28 81 133/74 100 09/30/20 05:23 90 97 09/30/20 05:18 79 98 09/30/20 05:13 76 126/72 97 09/30/20 05:08 78 97 09/30/20 05:03 72 98 09/30/20 04:58 77 121/71 98 09/30/20 04:53 80 99 09/30/20 04:48 77 99 09/30/20 04:43 72 117/67 99 09/30/20 04:38 73 99 09/30/20 04:33 100 H 98 09/30/20 04:28 82 99 09/30/20 04:23 103 H 98 09/30/20 04:18 102 H 94 09/30/20 04:13 84 99 09/30/20 04:08 88 99 09/30/20 04:03 90 98 09/30/20 03:58 73 99 09/30/20 03:53 92 H 99 09/30/20 03:48 81 98 02 03:47 91 0502 03:43 93 H 123/76 09/30/20 03:41 111 H 86 09/30/20 03:40 107 H 96 09/30/20 03:36 78 94 02 03:35 101 H 97 09/30/20 03:30 99 H 97 02 03:28 89 136/84 0502 03:25 91 H 96 02 03:24 90 94 02 03:21 75 129/75 09/30/20 03:20 76 97 09/30/20 03:15 97.8 F 95 H 18 98 09/30/20 03:10 104 H 98 09/30/20 03:05 81 99 09/30/20 03:00 79 98 02 02:58 83 119/68 0502 02:55 98 H 99 09/30/20 02:50 99 H 100 0502 02:45 74 119/78 100 02 02:40 70 100 0502 02:35 79 100 0502 02:30 78 100 0502 02:29 77 116/67 0502 02:25 67 16 100 0502 02:20 79 100 02 02:15 76 100 0502 02:13 70 128/61 0502 02:10 69 100 0502 02:07 73 131/63 0502 02:05 68 100 0502 02:00 65 100 0502 01:59 65 128/69 05/02 01:55 74 100 05/02 01:53 75 134/59 05/02 01:50 82 100 0502 01:45 72 100 0502/21 01:42 80 140/61 05/02/21 01:40 83 100 05/02 01:35 80 100 05/02/21 01:30 84 100 050221 01:28 76 114/73 0502 01:25 91 H 100 05 01:20 93 H 67 L 09/30/20 01:19 82 73 L 09/30/20 01:15 67 98 09/30/20 01:13 63 138/78 09/30/20 01:10 60 98 09/30/20 01:05 79 98 09/30/20 01:00 81 98 09/30/20 00:59 76 130/87 09/30/20 00:55 73 99 09/30/20 00:50 80 99 09/30/20 00:45 61 138/90 98 09/30/20 00:40 71 99 09/30/20 00:35 72 98 09/30/20 00:30 75 129/62 98 09/30/20 00:25 68 98 09/30/20 00:20 78 96 09/30/20 00:19 79 94 09/30/20 00:15 80 96 09/30/20 00:14 58 L 122/77 09/30/20 00:13 65 92 09/30/20 00:10 69 98 09/30/20 00:08 70 116/56 09/30/20 00:05 65 98 09/30/20 00:00 98 F 64 16 98 09/29/20 23:59 62 113/63 09/29/20 23:55 56 L 83 L 09/29/20 23:54 56 L 85 09/29/20 23:50 78 100 09/29/20 23:45 75 149/90 100 09/29/20 23:40 79 99 09/29/20 23:39 69 94 09/29/20 23:35 87 98 09/29/20 23:30 92 H 97 09/29/20 23:25 98 H 100 09/29/20 23:23 75 138/69 09/29/20 23:21 90 94 09/29/20 23:20 73 100 09/29/20 23:15 61 99 09/29/20 23:13 59 L 155/73 09/29/20 23:10 107 H 97 09/29/20 23:06 88 158/85 09/29/20 23:05 104 H 100 09/29/20 23:03 72 143/92 09/29/20 23:01 93 H 142/92 09/29/20 23:00 81 99 09/29/20 22:59 76 137/88 0521 22:55 90 98 09/29/20 22:54 94 H 93 09/29/20 22:50 87 99 05 22:45 78 99 09/29/20 22:40 95 H 98 09/29/20 22:35 99 H 99 09/29/20 22:30 101 H 99 09/29/20 22:25 76 100 09/29/20 22:20 81 132/74 100 09/29/20 22:15 79 100 09/29/20 22:10 72 100 09/29/20 22:05 65 99 09/29/20 22:00 67 99 09/29/20 21:58 62 127/71 09/29/20 21:56 71 135/88 09/29/20 21:55 90 98 09/29/20 21:50 74 98 09/29/20 21:45 76 97 09/29/20 21:43 75 94 09/29/20 21:40 62 100 09/29/20 21:37 65 94 09/29/20 21:35 63 98 09/29/20 21:30 60 98 09/29/20 21:25 65 100 09/29/20 21:20 94 H 99 09/29/20 21:19 86 85 09/29/20 21:15 77 100 09/29/20 21:10 91 H 99 09/29/20 21:06 83 92 09/29/20 21:05 90 100 09/29/20 21:00 89 100 09/29/20 20:56 84 84 09/29/20 20:55 70 100 09/29/20 20:50 68 100 09/29/20 20:45 104 H 100 09/29/20 20:40 94 H 99 09/29/20 20:35 79 100 05 20:30 101 H 95 09/29/20 20:28 95 H 91 09/29/20 20:25 79 99 09/29/20 20:20 74 100 05 20:15 79 98 05 20:10 79 93 09/29/20 20:05 91 H 100 05 20:00 79 99 09/29/20 19:55 77 99 05 19:50 78 98 09/29/20 19:45 111 H 98 09/29/20 19:40 72 99 09/29/20 19:35 75 100 09/29/20 19:30 98.6 F 112 H 99 09/29/20 19:25 82 99 09/29/20 19:20 102 H 100 09/29/20 19:19 113 H 166/114 09/29/20 19:15 79 99 09/29/20 19:10 81 98 09/29/20 19:05 82 20 97 09/29/20 19:00 71 99 09/29/20 18:55 83 100 09/29/20 18:51 84 166/116 09/29/20 18:50 78 99 09/29/20 18:49 88 168/110 09/29/20 18:45 82 100 09/29/20 18:40 79 100 09/29/20 18:35 83 100 09/29/20 18:30 80 100 09/29/20 18:25 77 100 09/29/20 18:24 77 146/93 09/29/20 18:23 77 151/100 09/29/20 18:20 95 H 99 09/29/20 18:19 80 160/102 09/29/20 18:15 105 H 98 09/29/20 18:10 86 99 09/29/20 18:05 98.0 F 91 H 18 137/83 137/83 100 09/29/20 18:04 52 L 76 L 09/29/20 17:52 85 100 09/29/20 17:48 88 147/92 09/29/20 17:47 91 H 100 09/29/20 17:42 83 100 09/29/20 17:37 79 100 09/29/20 17:32 77 99 09/29/20 17:27 71 100 09/29/20 17:23 78 134/95 09/29/20 17:22 91 H 100 09/29/20 17:17 99 H 99 09/29/20 17:12 94 H 100 09/29/20 17:07 87 100 09/29/20 17:02 92 H 99 09/29/20 16:57 81 100 09/29/20 16:52 82 100 09/29/20 16:47 103 H 100 09/29/20 16:42 67 82 L 09/29/20 16:41 66 77 L 09/29/20 16:36 85 100 05 16:31 88 100 05 16:26 83 99 05 16:21 81 99 05 16:18 75 143/91 05 16:16 77 99 05 16:11 75 100 05 16:06 77 99 05 16:01 79 99 05 15:56 93 H 100 09/29/20 15:51 76 99 05 15:49 71 137/88 05 15:46 85 98 05 15:41 84 99 05 15:36 81 99 05 15:31 74 98 05 15:26 75 100 05 15:21 75 99 09/29/20 15:18 79 132/88 09/29/20 15:16 83 97 09/29/20 15:11 89 98 05 15:06 77 100 09/29/20 15:01 75 100 05 14:56 72 99 09/29/20 14:51 73 100 05 14:49 97.8 F 71 16 128/65 128/65 99 05 14:46 71 98 09/29/20 14:41 75 99 05 14:36 72 99 09/29/20 14:31 69 99 09/29/20 14:26 73 99 09/29/20 14:21 84 100 05 14:18 69 132/100 09/29/20 14:16 72 98 05 14:15 59 L 89 09/29/20 14:10 88 97 09/29/20 14:05 74 98 05 14:00 74 99 05 13:55 75 99 05 13:50 74 98 05 13:48 71 135/82 05 13:45 73 98 05 13:40 73 98 05 13:35 70 98 05 13:30 72 98 05 13:25 68 98 05 13:20 73 98 05 13:18 64 142/84 05/01/21 13:15 73 99 09/29/20 13:10 72 99 09/29/20 13:05 69 100 09/29/20 13:00 70 100 09/29/20 12:55 72 100 09/29/20 12:50 76 100 09/29/20 12:48 68 141/92 09/29/20 12:45 73 100 09/29/20 12:40 84 100 09/29/20 12:35 86 100 09/29/20 12:30 86 100 09/29/20 12:27 68 92 09/29/20 12:25 87 100 09/29/20 12:20 68 145/91 100 09/29/20 12:15 75 98 09/29/20 12:10 110 H 99 09/29/20 12:05 83 99 09/29/20 12:00 77 98 09/29/20 11:55 81 98 09/29/20 11:50 89 98 09/29/20 11:49 96 H 143/87 09/29/20 11:45 95 H 99 09/29/20 11:40 74 98 09/29/20 11:35 86 99 09/29/20 11:30 85 99 09/29/20 11:25 91 H 100 09/29/20 11:20 90 148/93 98 09/29/20 11:15 85 100 Intake and Output 09/29/20 09/30/20 09/30/20 23:59 07:59 15:59 Intake Total 452.083 240 Output Total 400 1200 Balance 52.083 -1200 240 Intake: IV 452.083 Lactated Ringers 1,000 ml 452.083 @ 125 mls/hr IV [facility] Rx#:[id number] Oral 240 Output: Urine 400 1200 Indwelling 400 200 Void 1000 Other: Total, Intake Amount 240 Total, Output Amount 1000 # Voids Void 1 1 1 Estimated Blood Loss 100 - Exam Cardiovascular: Present: Regular rate Lungs: Present: Clear to auscultation Abdomen: Present: normal appearance, soft. Absent: distention, tenderness, guarding, rigidity Uterus: Present: normal, firm, fundal height below umbilicus. Absent: bogginess, tenderness Extremities: Absent: tenderness - Labs Labs: Abnormal lab results 04/30/21 Range/Units Unknown Urine Creatinine 45.9 H (0.1-20.0) mg/dL Ur Creatinine 24 Hour 0.7 L (0.8-2.8) Urine Total Protein 13 H (5-11.8) mg/dL
[2020-09-30 13:37] LABS: Alanine Aminotransferase 116 units/L (7-56); Albumin 2.7 g/dL (3.9-5); BUN/Creatinine Ratio 6; Blood Urea Nitrogen 4 mg/dL (7-17); Calcium 8.4 mg/dL (8.4-10.2); Hemolysis Index 7
[2020-09-30 13:48] LABS: Basophils % (Auto) 0.2 % (0.0-1.8); Eosinophils % (Auto) 0.2 % (0.0-4.3); Hematocrit 28.7 % (30.3-42.9); Hemoglobin 9.4 gm/dl (10.1-14.3); Lymphocytes # (Auto) 1.6 K/mm3 (1.2-5.4); Lymphocytes % (Auto) 11.6 % (13.4-35.0); Mean Corpuscular HGB Conc 33 % (30-34); Mean Corpuscular Volume 88 fl (79-97); Monocytes # (Auto) 1.4 K/mm3 (0.0-0.8); Monocytes % (Auto) 10.1 % (0.0-7.3); Platelet Count 208 K/mm3 (140-440); Red Blood Count 3.27 M/mm3 (3.65-5.03)
[2020-09-30 16:31] LABS: Hematocrit 29.1 % (30.3-42.9); Hemoglobin 9.5 gm/dl (10.1-14.3)
--- NOTE | 2020-09-30 17:53 | Post Anesthesia Evaluation ---
- Post Anesthesia Evaluation Patient Participated: Yes Airway Patent: Yes Stable Respiratory Function: Yes Nausea/Vomiting: No Temp > 96.8F: Yes Pain Manageable: Yes Adequeate Hydration: Yes Anesthesia Complications: No Block Receding Appropriately: Yes Patient on Ventilator: No
[2020-09-30] MEDS: FERROUS SULFATE 325 MG TAB PO SCH (22:12)
[2020-10-01] MEDS: IBUPROFEN 600 MG TAB PO SCH ×3 (09:58→22:49)
[2020-10-01] MEDS: PRENATAL VIT27-FE FUMARATE-FOLIC ACID VIT TAB PO SCH (09:59)
[2020-10-01] MEDS: FERROUS SULFATE 325 MG TAB PO SCH ×2 (09:59→22:50)
[2020-10-01] MEDS: HYDROcodone/ACETAMINOPHEN 5-325 MG TAB PO PRN (12:23)
[2020-10-01] MEDS ORDERED: IRON DEXTRAN COMPLEX 100 MG/2 ML INJ IM ONE (13:32)
--- NOTE | 2020-10-01 13:38 | Progress Note ---
Assessment and Plan - Patient Problems (1) Preeclampsia Current Visit: Yes Status: Acute Plan to address problem: Given LFT elevated 2x above threshold, this is enough to consider preeclampsia with severe features. Now uptrending. Given mild elevation of LFTs <300-500, no current concern for AFLP. --Repeat CBC, CMP, PT/PTT, Fibrinogen, Uric Acid, trend as indicated --Proceed with magnesium x 24H for preeclampsia with severe features --IV antihypertensive prn severe range BPs --Continue labetolol 100mg BID --Continue inpatient management (2) 37 weeks gestation of Onset Date: 03/31/18 Current Visit: No Status: Resolved Plan to address problem: s/p , meeting goals. Subjective - Subjective Date of service: 10/01/20 Principal diagnosis: day of delivery Interval history: Patient doing well. Meeting goals. Denies getting PNC in this . Denies hx of BP issues and/or preeclampsia. Denies PIH symptoms. Otherwise well. Patient reports: appetite normal, voiding normally, pain well controlled, flatus, ambulating normally [place]: doing well Objective - Vital Signs Latest vital signs: Vital Signs Temp Pulse Resp BP Pulse Ox 10/01/20 12:23 16 10/01/20 09:59 83 133/87 10/01/20 09:58 18 10/01/20 08:33 98.1 F 83 18 134/87 97 10/01/20 01:06 98.4 F 81 18 125/82 99 09/30/20 22:13 83 140/94 09/30/20 22:12 14 09/30/20 16:08 98.7 F 92 H 18 132/88 99 Intake and Output 09/30/20 10/01/20 10/01/20 23:59 07:59 15:59 Intake Total 1200 600 Balance 1200 600 Intake: Oral 480 Intake, Free Water 720 600 Other: Total, Intake Amount 480 # Voids Void 3 2 - Exam Abdomen: Present: normal appearance, normal bowel sounds Uterus: Present: firm (below the umbilicus) Extremities: Present: normal Deep Tendon Reflex Grade: Normal +2 - Labs Labs: Abnormal lab results 09/30/20 09/30/20 09/30/20 Range/Units 11:57 11:57 15:50 WBC 14.2 H (4.5-11.0) K/mm3 RBC 3.27 L (3.65-5.03) M/mm3 Hgb 9.4 L 9.5 L (10.1-14.3) gm/dl Hct 28.7 L 29.1 L (30.3-42.9) % RDW 17.0 H (13.2-15.2) % Lymph % (Auto) 11.6 L (13.4-35.0) % Nelson % (Auto) 10.1 H (0.0-7.3) % Nelson # (Auto) 1.4 H (0.0-0.8) K/mm3 Seg Neutrophils % 77.9 H (40.0-70.0) % Seg Neutrophils # 11.1 H (1.8-7.7) K/mm3 Sodium 136 L (137-145) mmol/L BUN 4 L (7-17) mg/dL Glucose 105 H (65-100) mg/dL AST 80 H (5-40) units/L ALT 116 H (7-56) units/L Alkaline Phosphatase 203 H (35-129) units/L Lactate Dehydrogenase 251 H (91-180) units/L Total Protein 5.5 L (6.3-8.2) g/dL Albumin 2.7 L (3.9-5) g/dL
[2020-10-01] MEDS ORDERED: MAGNESIUM SULFATE 4 GM/100 ML BAG IV ONE ×2 (14:00→14:20)
[2020-10-01] MEDS ORDERED: LACTATED RINGERS 1,000 ML ONE (14:30)
[2020-10-01] MEDS ORDERED: LACTATED RINGERS 1,000 ML IV SCH (15:00)
[2020-10-01] MEDS: MAGNESIUM SULFATE 40GM/1000ML 40 GM/1,000 ML BAG IV SCH (15:15)
[2020-10-01 16:22] LABS: Basophils # (Auto) 0.1 K/mm3 (0.0-0.1); Basophils % (Auto) 0.5 % (0.0-1.8); Eosinophils # (Auto) 0.1 K/mm3 (0.0-0.4); Eosinophils % (Auto) 0.8 % (0.0-4.3); Hematocrit 33.5 % (30.3-42.9); Lymphocytes # (Auto) 2.6 K/mm3 (1.2-5.4); Lymphocytes % (Auto) 19.5 % (13.4-35.0); Mean Corpuscular HGB Conc 33 % (30-34); Mean Corpuscular Volume 87 fl (79-97); Monocytes # (Auto) 1.2 K/mm3 (0.0-0.8); Monocytes % (Auto) 8.6 % (0.0-7.3); Platelet Count 243 K/mm3 (140-440); Red Blood Count 3.87 M/mm3 (3.65-5.03); Red Cell Distribution Width 17.2 % (13.2-15.2)
[2020-10-01 16:35] LABS: INR 0.91 (0.87-1.13); Partial Thromboplastin Time 29.6 Sec. (24.2-36.6)
[2020-10-01 16:52] LABS: Alanine Aminotransferase 127 units/L (7-56); Blood Urea Nitrogen 6 mg/dL (7-17); Calcium 8.9 mg/dL (8.4-10.2); Hemolysis Index 1; Uric Acid 6.4 mg/dL (3.5-7.6)
[2020-10-01 16:56] LABS: BUN/Creatinine Ratio 9
[2020-10-02] MEDS: FERROUS SULFATE 325 MG TAB PO SCH ×2 (09:48→22:14)
[2020-10-02] MEDS: PRENATAL VIT27-FE FUMARATE-FOLIC ACID VIT TAB PO SCH (09:48)
--- NOTE | 2020-10-02 09:58 | Progress Note ---
Assessment and Plan PPD # 2 A: S/P with preeclampsia P: Continue routine pp care and monitoring with MgSo4 Repeat AST/ALT today per MD D/C MgSo4 at 2pm and transfer to Subjective - Subjective Date of service: 10/02/20 Principal diagnosis: S/P Patient reports: other (Petit in place and draining adq amts cl yell colored urine. Still with c/o left side quinn.) : doing well, bottle feeding Objective - Vital Signs Latest vital signs: Vital Signs Temp Pulse Resp BP BP Pulse Ox 10/02/20 09:44 93 H 99 10/02/20 09:39 93 H 99 10/02/20 09:34 92 H 100 10/02/20 09:29 93 H 100 10/02/20 09:24 93 H 100 10/02/20 09:22 90 135/97 10/02/20 09:19 95 H 100 10/02/20 09:14 88 100 10/02/20 09:09 80 100 10/02/20 09:04 85 100 10/02/20 08:59 91 H 99 10/02/20 08:54 95 H 100 10/02/20 08:49 94 H 100 10/02/20 08:44 85 99 10/02/20 08:39 87 100 10/02/20 08:34 102 H 99 10/02/20 08:29 91 H 99 10/02/20 08:24 94 H 98 10/02/20 08:23 94 H 149/88 10/02/20 08:19 105 H 100 10/02/20 08:14 102 H 97 10/02/20 08:09 96 H 100 10/02/20 08:04 85 100 10/02/20 07:59 85 99 10/02/20 07:54 84 99 10/02/20 07:49 84 100 10/02/20 07:44 88 100 10/02/20 07:39 89 99 10/02/20 07:34 86 99 10/02/20 07:29 88 100 10/02/20 07:24 80 99 10/02/20 07:22 81 123/84 10/02/20 07:19 85 99 10/02/20 07:14 92 H 100 10/02/20 07:09 88 99 10/02/20 07:04 92 H 99 10/02/20 06:59 88 100 0504 06:54 88 99 0504 06:49 87 98 0504 06:44 88 99 0504 06:39 92 H 100 0504 06:34 89 99 05 06:29 80 100 10/02/20 06:24 77 100 05 06:22 88 18 126/84 126/84 100 05 06:19 85 99 0504 06:14 92 H 99 0504 06:09 87 100 05 06:04 95 H 99 05 05:59 83 99 0504 05:54 84 99 05 05:49 86 100 05 05:44 83 98 05 05:39 83 98 10/02/20 05:34 84 98 05 05:29 84 98 05 05:24 83 99 05 05:22 81 16 124/85 124/85 99 05 05:19 81 99 05 05:14 85 99 05 05:09 87 100 05 05:04 88 99 05 04:59 87 100 10/02/20 04:54 85 98 05 04:49 89 100 10/02/20 04:44 82 99 10/02/20 04:39 84 100 10/02/20 04:34 84 100 10/02/20 04:29 80 100 05 04:24 84 99 05 04:22 94 H 16 129/84 129/84 99 0504 04:19 82 99 0504 04:14 89 99 0504 04:09 93 H 99 0504 04:04 95 H 100 05 03:59 86 98 0504 03:54 88 99 0504 03:49 87 98 05 03:44 85 99 0504 03:39 88 98 0504 03:34 85 98 0504 03:29 89 99 0504 03:24 93 H 99 05 03:22 98.2 F 91 H 16 131/94 131/94 99 10/02/20 03:19 92 H 98 0504 03:14 90 100 0504 03:09 93 H 99 05 03:04 96 H 99 10/02/20 02:59 100 H 100 10/02/20 02:54 100 H 100 10/02/20 02:49 98 H 100 10/02/20 02:44 96 H 100 10/02/20 02:39 106 H 99 10/02/20 02:34 93 H 100 10/02/20 02:29 82 100 10/02/20 02:24 105 H 100 10/02/20 02:22 90 18 147/89 147/89 99 10/02/20 02:19 94 H 99 10/02/20 02:14 91 H 99 10/02/20 02:09 97 H 98 10/02/20 02:04 91 H 99 10/02/20 01:59 92 H 98 10/02/20 01:54 89 99 10/02/20 01:49 92 H 99 10/02/20 01:44 84 98 10/02/20 01:39 94 H 99 10/02/20 01:34 94 H 98 10/02/20 01:29 86 98 10/02/20 01:24 89 98 10/02/20 01:22 93 H 18 133/82 133/82 100 10/02/20 01:19 88 97 10/02/20 01:14 96 H 99 10/02/20 01:09 89 99 10/02/20 01:04 98 H 99 10/02/20 00:59 93 H 99 10/02/20 00:54 93 H 99 10/02/20 00:49 90 99 10/02/20 00:44 96 H 100 10/02/20 00:39 92 H 99 10/02/20 00:34 95 H 99 10/02/20 00:29 96 H 99 10/02/20 00:24 96 H 99 10/02/20 00:23 93 H 16 130/83 100 10/02/20 00:22 93 H 130/83 10/02/20 00:19 95 H 100 10/02/20 00:14 94 H 99 10/02/20 00:09 92 H 100 05 00:04 89 100 05 23:59 85 99 05 23:54 90 99 05 23:49 91 H 99 05 23:44 87 100 05 23:39 95 H 100 05 23:34 92 H 99 05 23:29 101 H 99 05 23:24 95 H 99 05 23:22 98.6 F 83 18 119/68 119/68 99 05 23:19 83 100 10/01/20 23:14 90 100 05 23:09 95 H 99 05 23:04 89 100 05 22:59 90 99 10/01/20 22:54 86 99 10/01/20 22:49 86 141/96 98 10/01/20 22:44 89 100 10/01/20 22:39 89 99 05 22:34 81 99 05 22:29 82 98 10/01/20 22:24 89 99 10/01/20 22:23 86 18 142/96 142/96 100 05 22:19 86 100 05 22:14 90 99 05 22:09 89 99 10/01/20 22:04 90 99 10/01/20 21:59 88 99 10/01/20 21:54 101 H 98 10/01/20 21:49 92 H 99 10/01/20 21:44 91 H 98 10/01/20 21:40 75 90 0503 21:38 103 H 100 0503 21:33 95 H 99 0503 21:28 84 99 0503 21:23 72 18 135/88 135/88 98 0503 21:18 88 99 0503 21:13 104 H 99 0503 21:08 86 99 0503 21:03 84 100 0503 20:58 87 99 05/03 20:53 87 100 05/03 20:48 92 H 100 0503 20:43 84 100 0503 20:38 87 99 0503 20:33 88 100 05/03/21 20:28 93 H 99 10/01/20 20:23 89 100 10/01/20 20:19 81 18 140/91 140/91 100 10/01/20 20:18 62 100 05 20:13 85 100 10/01/20 20:08 85 99 10/01/20 20:03 90 99 05 19:58 93 H 100 10/01/20 19:53 96 H 100 10/01/20 19:50 96 H 145/96 10/01/20 19:48 100 H 98 10/01/20 19:43 100 H 100 10/01/20 19:38 93 H 99 10/01/20 19:33 90 98 10/01/20 19:28 100 H 98 10/01/20 19:24 98.3 F 104 H 18 155/96 155/96 98 10/01/20 19:23 110 H 100 10/01/20 19:18 106 H 99 10/01/20 19:13 94 H 99 10/01/20 19:08 99 H 99 10/01/20 19:03 87 99 10/01/20 18:58 90 100 10/01/20 18:53 97 H 99 10/01/20 18:49 108 H 139/101 10/01/20 18:48 93 H 99 10/01/20 18:43 90 99 10/01/20 18:38 93 H 100 10/01/20 18:33 101 H 99 10/01/20 18:28 95 H 100 10/01/20 18:23 92 H 100 10/01/20 18:19 89 131/87 10/01/20 18:18 91 H 99 10/01/20 18:13 97 H 99 10/01/20 18:08 99 H 100 10/01/20 18:03 108 H 97 10/01/20 17:57 78 L 05 17:50 110 H 91 10/01/20 17:49 103 H 136/86 05 17:44 102 H 100 10/01/20 17:39 102 H 99 10/01/20 17:34 94 H 99 10/01/20 17:29 94 H 99 05 17:24 95 H 99 10/01/20 17:19 93 H 146/92 98 05/03/21 17:14 83 98 10/01/20 17:08 78 93 10/01/20 17:04 41 L 89 10/01/20 17:03 89 10/01/20 16:59 86 98 10/01/20 16:54 81 99 10/01/20 16:49 80 134/92 100 10/01/20 16:44 77 100 10/01/20 16:39 99 H 99 10/01/20 16:34 88 100 10/01/20 16:29 97 H 100 10/01/20 16:24 93 H 100 10/01/20 16:20 100 H 138/87 10/01/20 16:19 45 L 85 10/01/20 16:18 30 L 76 L 10/01/20 16:09 77 99 10/01/20 16:04 94 H 100 10/01/20 15:59 86 100 10/01/20 15:54 90 100 10/01/20 15:49 84 145/91 100 10/01/20 15:44 92 H 100 10/01/20 15:39 85 99 10/01/20 15:34 78 100 10/01/20 15:29 90 100 10/01/20 15:24 80 99 10/01/20 15:19 79 142/99 99 10/01/20 15:14 77 99 10/01/20 15:12 98.3 F 16 10/01/20 15:10 82 149/97 10/01/20 15:09 82 98 10/01/20 14:49 72 157/105 10/01/20 14:34 75 170/116 10/01/20 14:29 72 169/101 10/01/20 14:03 66 170/104 10/01/20 12:23 16 10/01/20 09:59 83 133/87 10/01/20 09:58 18 Intake and Output 10/01/20 10/02/20 10/02/20 22:59 06:59 14:59 Intake Total 640 760 Output Total 5000 6300 Balance -4360 -5540 Intake: Oral 640 760 Output: Urine 5000 6300 Indwelling 2250 2900 Indwelling Catheter 1750 3400 Void 1000 Other: Total, Intake Amount 200 120 Total, Output Amount 700 400 - Exam Breasts: Present: normal Abdomen: Present: normal appearance, soft, normal bowel sounds Vulva: both: normal Uterus: Present: normal Extremities: Present: normal - Labs Labs: Abnormal lab results 10/01/20 10/01/20 10/01/20 Range/Units 14:46 14:46 14:46 WBC 13.4 H (4.5-11.0) K/mm3 RDW 17.2 H (13.2-15.2) % [place] % (Auto) 8.6 H (0.0-7.3) % [place] # (Auto) 1.2 H (0.0-0.8) K/mm3 Seg Neutrophils % 70.6 H (40.0-70.0) % Seg Neutrophils # 9.4 H (1.8-7.7) K/mm3 Fibrinogen 488 H (211-480) mg/dl BUN 6 L (7-17) mg/dL Magnesium (1.7-2.3) mg/dL AST 88 H (5-40) units/L ALT 127 H (7-56) units/L Alkaline Phosphatase 214 H (35-129) units/L Lactate Dehydrogenase 286 H (91-180) units/L Albumin 3.0 L (3.9-5) g/dL 10/01/20 10/01/20 10/02/20 Range/Units 14:46 20:29 02:01 WBC (4.5-11.0) K/mm3 RDW (13.2-15.2) % [place] % (Auto) (0.0-7.3) % [place] # (Auto) (0.0-0.8) K/mm3 Seg Neutrophils % (40.0-70.0) % Seg Neutrophils # (1.8-7.7) K/mm3 Fibrinogen (211-480) mg/dl BUN (7-17) mg/dL Magnesium 1.30 L 5.00 H 6.40 H (1.7-2.3) mg/dL AST (5-40) units/L ALT (7-56) units/L Alkaline Phosphatase (35-129) units/L Lactate Dehydrogenase (91-180) units/L Albumin (3.9-5) g/dL
[2020-10-02 10:55] LABS: Alanine Aminotransferase 111 units/L (7-56); Albumin 3.2 g/dL (3.9-5); Blood Urea Nitrogen 3 mg/dL (7-17); Calcium 7.3 mg/dL (8.4-10.2); Hemolysis Index 24
[2020-10-02 10:57] LABS: BUN/Creatinine Ratio 5
[2020-10-02] MEDS: IBUPROFEN 600 MG TAB PO SCH ×3 (11:16→18:12)
[2020-10-02] MEDS: MAGNESIUM SULFATE 40GM/1000ML 40 GM/1,000 ML BAG IV SCH (11:17)
[2020-10-02] MEDS: HYDROcodone/ACETAMINOPHEN 5-325 MG TAB PO PRN (22:16)
[2020-10-03] MEDS: IBUPROFEN 600 MG TAB PO SCH ×4 (00:29→18:34)
[2020-10-03] MEDS: FERROUS SULFATE 325 MG TAB PO SCH (10:51)
[2020-10-03] MEDS: PRENATAL VIT27-FE FUMARATE-FOLIC ACID VIT TAB PO SCH (10:51)
--- NOTE | 2020-10-03 16:10 | Progress Note ---
Assessment and Plan - Patient Problems (1) Elevated LFTs Onset Date: 04/01/18 Current Visit: No Status: Chronic Plan to address problem: Repeat CMP not done yet for today. If LFTs have improved significantly, may send pt home later today. Otherwise, would repeat labs in AM. Cont Labetalol 100 mg BID. (2) (normal spontaneous vaginal delivery) Onset Date: 04/01/18 Current Visit: No Status: Resolved Subjective - Subjective Date of service: 10/03/20 Principal diagnosis: S/P Interval history: Pt is stable PPD 3 with no preeclamptic sxs. No RUQ pain. LFTs did start to improved yesterday but were still elevated. No other issues. VB WNL. Objective - Vital Signs Latest vital signs: Vital Signs Temp Pulse Resp BP BP Pulse Ox 10/03/20 15:04 98.1 F 72 18 140/94 98 10/03/20 10:52 122/84 10/03/20 08:04 98.0 F 83 18 122/84 92 10/03/20 06:06 18 10/03/20 04:30 98.6 F 74 16 124/77 10/03/20 01:50 98.0 F 73 16 141/87 98 10/03/20 00:29 18 10/02/20 23:16 18 10/02/20 22:16 18 10/02/20 22:14 98.0 F 76 18 132/91 98 10/02/20 19:12 18 10/02/20 16:13 95 H 135/95 Intake and Output 10/03/20 10/03/20 10/03/20 07:59 15:59 23:59 Intake Total 300 Balance 300 Intake: Intake, Free Water 300
[2020-10-03 17:24] LABS: Alanine Aminotransferase 102 units/L (7-56); Albumin 3.5 g/dL (3.9-5); Blood Urea Nitrogen 8 mg/dL (7-17); Hemolysis Index 13
[2020-10-03 17:34] LABS: BUN/Creatinine Ratio 13
--- NOTE | 2020-10-03 19:17 | Discharge Summary ---
Providers - Providers Date of Admission: 09/28/20 22:06 Attending physician: MURRAY SOSA MD 09/30/20 07:32 Consult to Case Management [CONS] Routine Services Needed at Discharge: Other Notified:: none Comment:: pos THC Primary care physician: PRESS WRITER Hospitalization Delivery: Hospital course: See H&P and delivery note for admission details. PP, PT developed preeclampsia and elevated LFTs in particular. LFTs were followed and were trending down by day of d/c on PPD 3. AST/ALT were 59/102 at time of d/c. PT advised to f/u in the office in 1 week to repeat LFTs. PT with no preeclamptic sxs. Condition at discharge: Stable Disposition: DC-01 TO HOME OR SELFCARE - Discharge Diagnoses (1) Elevated LFTs Status: Chronic (2) (normal spontaneous vaginal delivery) Status: Resolved Plan - Discharge Medications Prescriptions: labetaloL [Labetalol 100mg TAB] 100 mg PO BID #90 tablet Ibuprofen [Motrin 600 MG tab] 600 mg PO Q6HR PRN #30 tablet PRN Reason: Pain , Severe (7-10) - Provider Discharge Summary Additional instructions: [] Smoking cessation referral if applicable(refer to patient education folder for contact #) [] Refer to [facility] Booklet Call your doctor immediately for: * Fever > 100.5 * Heavy vaginal bleeding ( >1 pad per hour) * Severe persistent headache * Shortness of breath * Reddened, hot, painful area to leg or breast * Drainage or odor from incision. * Keep incision clean and dry at all times and follow doctor's instructions regarding bathing/showering - Follow up plan Follow up: PRIMARY CAREMD [Primary Care Provider] - 7 Days
[2020-10-03 20:32] VITALS: BP 137/91
== END 2020-10-03 21:32 | disposition home or self-care (01) | DRG 775 ==
LOC: TRG 18:57 → APU 18:58 → TRG 22:06 → LD 22:06 → OB 09-30 06:58 → LD 10-01 13:58 → OB 10-02 15:30
PROC: 3E0R3BZ Introduction of Anesthetic Agent into Spinal Canal, Percutaneous Approach (ICD-10-PCS; 2020-09-29)
PROC: 00HU33Z Insertion of Infusion Device into Spinal Canal, Percutaneous Approach (ICD-10-PCS; 2020-09-29)
PROC: 10E0XZZ Delivery of Products of Conception, External Approach (ICD-10-PCS; principal; 2020-09-30)
DX: O16.4 Unspecified maternal hypertension, complicating childbirth (principal); O14.14 Severe pre-eclampsia complicating childbirth; Z3A.38 38 weeks gestation of pregnancy; Z37.0 Single live birth; R79.89 Other specified abnormal findings of blood chemistry; Z20.822 Contact with and (suspected) exposure to COVID-19
CPT/HCPCS: 36415; 59025; 76805; 76816; 76819; 80053; 80307; 81001; 82565; 82570; 83615; 83735; 84156; 84450; 84460; 84550; 85014; 85018; 85025; 85027; 85384; 85610; 85730; 86592; 86706; 86762; 86803; 86850; 86900; 86901; 87806; 96360; 96361; 96365; 96366; 96372; 96374; 96376; G0378; J0290; J2300; J2405; J2590; J3475; J7120; Q0169; U0003

== ENCOUNTER 2021-05-22 18:56 | Emergency (ER) | payer MEDICAID ==
[2021-05-22 20:41] VITALS: BP 117/75
[2021-05-22] MEDS ORDERED: LIDOCAINE-MPF (1%) 10 MG/1 ML VIAL 5 ML INFILTRATI ONE (23:38)
[2021-05-22] MEDS ORDERED: HYDROcodone/ACETAMINOPHEN 5-325 MG TAB PO STA (23:57)
[2021-05-23 00:12] LABS: Bacteria,Urine 3+ /HPF (Negative); Bilirubin,Urine NEG (Negative); Blood,Urine NEG (Negative); Color,Urine Yellow (Yellow); Mucus,Urine 2+ /HPF; Urobilinogen,Urine < 2.0 mg/dL (<2.0)
[2021-05-23 00:26] LABS: HCG Qualitative,Urine Negative (Negative)
== END 2021-05-23 00:05 ==
LOC: ED 18:56
DX: N15.9 Renal tubulo-interstitial disease, unspecified (principal); Z53.21 Procedure and treatment not carried out due to patient leaving prior to being seen by health care provider
CPT/HCPCS: 81001; 81025; 96372; J0696; J3490